=== PATIENT | male | born 1955 | race Caucasian/White ===

== ENCOUNTER 2019-06-07 08:48 | Inpatient (IN) ==
--- NOTE | 2019-06-07 09:37 | Diag Imaging Result Doc PS360 ---
CHEST-PORTABLE - 06/07/2019 INDICATION: weakness COMPARISON: 10/14/2015 FINDINGS: There may be free air under the left hemidiaphragm. Further imaging recommended. No infiltrates in the lungs. IMPRESSION: Possible peritoneal free air. Recommend further imaging. An abdomen pelvis CT would be indicated. This report was discussed with Yuniel on 06/07/2019 at 9:34 AM and was readback. Electronically signed by Arturo Ennis 06/07/2019 9:34 AM
--- NOTE | 2019-06-07 09:40 | PROVIDER DOCUMENTATION ---
HPI-General Adult - General Chief Complaint: B/P Problems Stated Complaint: LOW BP Time Seen by Provider: 06/07/19 08:57 Source: EMS notes reviewed, [facility] records, other (leather coater) Allergies/Adverse Reactions: Patient Allergies Allergy/AdvReac Type Severity Reaction Status Date / Time aspirin AdvReac Unknown Verified 06/07/19 09:21 haloperidol [From Haldol] AdvReac Unknown Verified 06/07/19 09:21 haloperidol lactate * AdvReac Unknown Verified 06/07/19 09:21 [From Haldol] lorazepam [From Ativan] AdvReac Unknown Verified 06/07/19 09:21 Home Medications: Home Medication List Medication Instructions Recorded Confirmed Last Taken Type Bisacodyl 10 mg HI DAILY 10/14/15 06/07/19 06/07/19 History Esomeprazole [Nexium] 40 mg PO DAILY 10/14/15 06/07/19 06/07/19 History Lactulose [Constulose] 2 tbs PO BID 10/14/15 06/07/19 06/07/19 History Levothyroxine Sodium [Levothroid] 25 mcg PO DAILY 10/14/15 06/07/19 06/07/19 History Megestrol Acetate 40 mg PO BID 10/14/15 06/07/19 06/07/19 History Ziprasidone [Geodon] 60 mg PO QHS 10/14/15 06/09/18 06/09/18 History Oxcarbazepine [Trileptal] 300 mg PO TID 06/09/18 06/07/19 06/07/19 History Acetaminophen [Arthritis Pain 1 tab PO BID 06/07/19 06/07/19 06/07/19 History Relief] Ammonium Lactate 1 applicatn TOP BID 06/07/19 06/07/19 06/07/19 History Brinzolamide/Brimonidine Tart 1 drp OPH BID 06/07/19 06/07/19 06/07/19 History [Simbrinza 1%-0.2% Eye Drops] Cilostazol 1 tab PO BID 06/07/19 06/07/19 06/07/19 History Clonidine [Catapres] 0.5 tab PO BID 06/07/19 06/07/19 06/06/19 History Divalproex Sodium [Divalproex 2 tab PO BID 06/07/19 06/07/19 06/07/19 History Sodium ER] Furosemide 1 tab PO DIRECTED 06/07/19 06/07/19 06/07/19 History Ipratropium/Albuterol Sulfate 1 dose INH Q4H PRN 06/07/19 06/07/19 Unknown History [Iprat-Albut 0.5-3(2.5) mg/3 ml] Iron/FA/Vitamin B Comp W-C/Min 1 tab PO DAILY 06/07/19 06/07/19 06/07/19 History [Ferrocite Plus Tablet] Loratadine/Pseudoephedrine 1 tab PO DAILY 06/07/19 06/07/19 06/07/19 History [Allergy Relief D-24Hr Tablet] Magnesium Hydroxide [Milk of 30 ml PO DIRECTED 06/07/19 06/07/19 06/06/19 History Magnesia] Multivitamin [Multivitamins] 1 tab PO DAILY 06/07/19 06/07/19 06/07/19 History Nystatin Cream [Mycostatin Cream] 1 applicatn TOP TID 06/07/19 06/07/19 06/07/19 History Olanzapine [Zyprexa] 1 tab PO DAILY@1900 06/07/19 06/07/19 06/06/19 History Polyethylene Glycol 3350 [Miralax] 34 gm PO BID 06/07/19 06/07/19 06/07/19 History Potassium Chloride E.r. [Klor-Con] 1 tab PO DIRECTED 06/07/19 06/07/19 06/07/19 History Sennosides [Senna Lax] 1 tab PO DAILY 06/07/19 06/07/19 Unknown History Sucralfate 1 tab PO 4XDAY 06/07/19 06/07/19 06/07/19 History - History of Present Illness -Gen Adult Nature of Presenting Problems: Patient with a history of significant developmental delay, non-verbal, sent from his intermediate care institution for low blood pressure, change in activity, increased agitation, weight loss. Patient is unable to give any information. All information is from the LINE SERVICE SUPERVISOR at the facility and the leather coater with him. They report he had a bp of 80's/60's this morning, but usually he is hypertensive. Review of Systems - Adult - REVIEW OF SYSTEMS - ADULT ROS:: unobtainable per condition (except from staff) Constitutional: reports: weight loss Eyes: reports: no symptoms reported Ears, Nose, Mouth & Throat: reports: no symptoms reported Cardiovascular: reports: no symptoms reported Respiratory: reports: no symptoms reported Gastrointestinal: reports: poor appetite, other Genitourinary: reports: no symptoms reported Musculoskeletal: reports: muscle weakness Integumentary: reports: no symptoms reported Neurological: reports: see HPI, other (decrease ability to stand) Psychiatric: reports: other (increased agitation) Endocrine: reports: no symptoms reported Hematologic/Lymphatic: reports: no symptoms reported Allergic/Immunologic: reports: no symptoms reported Past History - Adult - PAST MEDICAL HISTORY-ADULT Review of Records: reports: Old Records Reviewed Major Childhood Illnesses: reports: denies history Cardiovascular: reports: denies history Respiratory: reports: denies history Gastrointestinal: reports: GERD Obstetrical/Gynecological: reports: denies history Genitourinary: reports: denies history Musculoskeletal: reports: denies history Neurological: reports: denies history Endocrine/Immune: reports: denies history Other Conditions: reports: denies history - PRIOR SURGERIES/PROCEDURES Surgical/Procedure History: reports: reviewed, not pertinent - FAMILY HISTORY Family History: reviewed, not pertinent Physical Exam-General - PHYSICAL EXAM-ADULT Initial Vital Signs Reviewed: Yes - CONSTITUTIONAL General Appearance: anxious, other (agitated) - EYES Eyes: sunken eyes - HEAD, EARS, NOSE, MOUTH & THROAT HENMT: normocephalic/atraumatic, other (dry mm). negative: moist mucous membranes - NECK Neck: non-tender - RESPIRATORY Respiratory: chest non-tender, normal breath sounds - CARDIOVASCULAR Cardiovascular: normal peripheral pulses, no JVD, tachycardia - GASTROINTESTINAL (ABDOMEN) Abdominal Exam: soft, no organomegaly. negative: guarding, rigid, tenderness - MUSCULOSKELETAL Extremity: no pedal edema, other (contracted,) - SKIN Integumentary: other (tenting) - NEUROLOGIC Neurologic: sensory deficit. negative: focal weakness - PSYCHIATRIC Psych/Mental Status: other (non-verbal, agitated, not following commands) Progress - PLAN OF CARE/RESULTS Progress/Plan/Lab Results: Vital Signs - 8 hr 06/07/19 08:55 Temperature 97.3 F L Pulse Rate 102 H Respiratory Rate 16 Blood Pressure 129/80 O2 Sat by Pulse Oximetry 97 Orders Category Date Time Status CHEST-PORTABLE [RAD] Stat Exams 06/07/19 09:[address] ABDOMEN/PELVIS W/O CONTRAST [CT] Stat Exams 06/07/19 09:37 Ordered CBC WITH ELECTRONIC DIFF [HEME] Stat Lab 06/07/19 09:16 Uncollected CK PROFILE [SP CHEM] Stat Lab 06/07/19 09:16 Uncollected COMPREHENSIVE METABOLIC PANEL [CHEM] Stat Lab 06/07/19 09:16 Uncollected INFLUENZA SCREEN A/B Stat Lab 06/07/19 09:16 Uncollected LIPASE [CHEM] Stat Lab 06/07/19 09:16 Uncollected MAGNESIUM [CHEM] Stat Lab 06/07/19 09:16 Uncollected TROPONIN T Stat Lab 06/07/19 09:16 Uncollected URINALYSIS W/POSS RFLX CULT [URINALYSIS] Stat Lab 06/07/19 09:[address] noted. Plan for admission. Result Diagrams: 06/07/19 09:34 06/07/19 09:34 - EKG 1 EKG Read and Signed by:: Sal Saucedo (st 109, no ectopy) - CT/MRI 1 CT Study: Abdomen, Pelvis Impression: See EMR Report Departure - Departure Date of Disposition Decision: 06/07/19 Time of Disposition Decision: 11:11 DIAGNOSIS: Hypernatremia, Dehydration Constipation Qualifiers: Constipation type: unspecified constipation type Qualified Code(s): K59.00 - Constipation, unspecified Disposition: ADMITTED INPATIENT 09 Certified Medical Emergency: Emergent Condition: Serious Referrals and Follow-Ups: Hanna Fontana [Primary Care Provider] - - Critical Care Note This patient required my direct & personal management of CC.: Yes Total Time (mins): 36 Critical Care Statement: This patient required my direct personal management to treat or rule out processes, the absence of which, could potentiallly result in sudden, clinically significant life or limb threatening deterioration. Attestation - Physician/ HUDSON Attestation Patient care was provided by Advanced Practice Provider:: No The physician spent face to face time with patient:: Yes Advanced Practice Provider documentation review:: Supervising physician onsite and consulted in the evaluation and care of this patient. The physician did have a face to face encounter with the patient.
[2019-06-07 09:59] LABS: BASO# 0.05 X1000 (0.0-0.2); BASO% 0.4 % (0.0-0.8); EOS# 0.14 X1000 (0.0-0.7); EOS% 1.2 % (0.0-10.0); HEMATOCRIT 46.1 % (42.0-52.0); HEMOGLOBIN 14.9 g/dL (14.0-18.0); IMM GRAN# 0.02 X1000 (0.0-0.04); IMM GRAN% 0.2 % (0.0-0.5); LYMPH% 19.2 % (20.5-51.1); MCH 35.5 PG (27-31); MCHC 32.3 g/dL (33-37); MCV 109.8 FL (81-99); MONO# 0.67 X1000 (0.11-0.59); MONO% 5.9 % (1.7-9.3); MPV 12.4 FL (7.4-10.4); NEUT# 8.35 X1000 (1.4-6.5); NEUT% 73.1 % (42.2-75.2); PLT 171 X1000 (130-400); RDW 13.6 % (11.5-14.5); WBC 11.43 X1000 (4.8-10.8)
--- NOTE | 2019-06-07 10:23 | Diag Imaging Result Doc PS360 ---
EXAM: CT ABDOMEN/PELVIS W/O CONTRAST INDICATION: abdominal pain TECHNIQUE: This exam was performed using automated exposure control, adjustment of mA or kV according to patient size, and/or use of iterative reconstruction technique. COMPARISON: 05/03/2019 FINDINGS: Airspace consolidations at the lung bases, more prominent on the right are again noted. There has been some improvement on the left as compared to the previous study. There is nodularity at both lung bases that is probably a part of the consolidation. There is no pleural fluid collection or pneumothorax. There has been a prior cholecystectomy. The liver, spleen, pancreas, adrenal glands, kidneys, and urinary bladder are grossly unremarkable as imaged with unenhanced CT. There is a large amount of stool seen throughout the colon suggesting severe constipation. Severe constipation was also seen on the previous study. There is no definite obstructive bowel pattern. There is a moderate-sized hiatal hernia that is essentially stable. The remainder of the GI tract is grossly unremarkable as imaged. No free abdominal gas or free fluid is appreciated. There is no evidence of acute osseous abnormality. IMPRESSION: 1.Severe constipation. 2.Bibasilar vaguely nodular airspace infiltrates that is worst on the right and have improved somewhat on the left since the previous study. Electronically signed by Abner Espinoza 06/07/2019 10:21 AM
[2019-06-07 10:50] LABS: AGAP 10; ALBUMIN 3.7 g/dL (3.5-5.0); ALKALINE PHOSPHATASE 122 U/L (32-122); BUN 44 mg/dL (8-22); CALCIUM 8.7 mg/dL (8.8-10.2); CHLORIDE 125 mmol/L (98-107); CK PROFILE 102 U/L (24-204); COSMO 334; CREATININE 1.2 mg/dL (0.7-1.2); ESTIMATED GFR > 60; GLUCOSE 139 mg/dL (70-104); GOT 228 U/L (10-34); GPT 242 U/L (10-44); LIPASE 33 U/L (13-60); MAGNESIUM 2.8 mg/dL (1.5-2.7); POTASSIUM 3.8 mmol/L (3.5-5.1); TCO2 27 mmol/L (25-35); TOTAL BILIRUBIN 0.34 mg/dL (0.20-1.00); TOTAL PROTEIN 7.3 g/dL (6.3-8.3)
[2019-06-07 10:58] LABS: SODIUM 162 mmol/L (136-145)
[2019-06-07] MEDS ORDERED: NS 1,000 ML IV ONE (11:04)
[2019-06-07] MEDS ORDERED: D5W 1,000 ML IV ONE ×3 (11:54→15:13)
[2019-06-07] MEDS ORDERED: DULCOLAX PR ONE (11:57)
--- NOTE | 2019-06-07 12:12 | EKG Report ---
Test Performed on : 06/07/2019 09:10:53 AM Test Reason : LOW BP Blood Pressure : / mmHG Vent. Rate : 101 BPM Atrial Rate : 101 BPM P-R Int : 128 ms QRS Dur : 070 ms QT Int : 402 ms P-R-T Axes : 075 076 -09 degrees QTc Int : [address] & T wave abnormality, consider inferior ischemia Abnormal ECG No previous ECGs available Unconfirmed Result
[2019-06-07] MEDS ORDERED: ZOFRAN IV PRN (12:23)
[2019-06-07] MEDS ORDERED: TYLENOL PR PRN (12:23)
[2019-06-07 13:10] LABS: BILIRUBIN URINE NEGATIVE (NEGATIVE); BLOOD URINE MODERATE (NEGATIVE); COLOR YELLOW; GLUCOSE URINE NEGATIVE (NEGATIVE); KETONE URINE NEGATIVE (NEGATIVE); LEUKOCYTES URINE NEGATIVE (NEGATIVE); NITRITE URINE NEGATIVE (NEGATIVE); PH URINE 7.5; PROTEIN URINE NEGATIVE (NEGATIVE); TURBIDITY URINE HAZY (CLEAR); URINE SOURCE CATH; UROBILINOGEN URINE NORMAL (NORMAL)
[2019-06-07 13:17] LABS: UR EPITHELIAL CELLS <10 /HPF (<10); URINE BACTERIA NEGATIVE /HPF; URINE RBC TNTC /HPF (<10); URINE WBC <10 /HPF (<10)
[2019-06-07 14:54] LABS: HEMOGLOBIN A1C 4.8 % (4.8-6.0)
[2019-06-07] MEDS: D5W 1,000 ML IV SCH (19:27)
--- NOTE | 2019-06-07 19:48 | HISTORY AND PHYSICAL ---
PRIMARY CARE PROVIDER: NIRANJAN Ken. CHIEF COMPLAINT: Per [facility] providers, low blood pressure. HISTORY OF PRESENT ILLNESS: Mr. Will is a 63-year-old, gentleman, who has significant developmental delay. He is nonverbal. He was sent in from the [facility] secondary to low blood pressure, decrease in oral intake. He is able to get up to a chair or a wheelchair, but he does not walk. He does appear to have contractures. He is able to swallow some medications and sometimes they crush them. Per caregivers at bedside, he has 2 good bowel movements per day, and they have not noticed a decrease in his urine output. He does wear briefs at all times. They did bring him to the ED to be evaluated. He was found to be hypernatremic at 165, with transaminitis. He will be admitted to the step-down unit, where we will monitor serial sodium levels. He was given a normal saline bolus in the ED. We will start him on D5W and adjust the rate according to his sodium levels if needed, and continue him on his home medications as well as his bowel regimen. His abdomen and pelvis CT does show severe constipation, which is normal per his caregivers. PAST MEDICAL HISTORY: 1. Severe intellectual impairment. 2. Nonverbal, lives at the [facility] . 3. GERD. 4. Contractures. 5. Chronic constipation. 6. Hypertension. 7. Hypothyroidism. PAST SURGICAL HISTORY: Unknown. FAMILY HISTORY: Unknown. SOCIAL HISTORY: He lives at the [facility]. FAMILY HISTORY: I believe he does have family. They are not currently at the bedside. HOME MEDICATIONS: Currently being compiled and updated. PHYSICAL EXAMINATION: VITAL SIGNS: Temperature is 97.3 degrees, heart rate 105, respirations 14, blood pressure 117/98, O2 is 99% on room air. GENERAL: Mr. Will is a 63-year-old, gentleman, who is lying on his right side on the stretcher in no acute distress. They are attempting to put in a Chandler catheter at this time. HEENT: Atraumatic, normocephalic. PERRL. Mucous membranes are extremely dry. NECK: Supple. Trachea midline. CARDIOVASCULAR: S1, S2 appreciated. No murmurs, gallops, rubs noted. RESPIRATORY: Lung sounds clear bilaterally. GASTROINTESTINAL: Appears to be soft, nontender, nondistended. Positive bowel sounds in 4 quadrants. EXTREMITIES: Lower extremities appear to be contractured as well as upper extremities. There is no lower extremity edema. No signs of clubbing or cyanosis. NEUROLOGIC: He does have significant developmental delays. However, he is awake and looking around. He does not talk or answer questions. He is nonverbal, does not follow any commands, and he is not agitated at this time. DIAGNOSTIC DATA: Abdomen and pelvis CT: Severe constipation, bibasilar vaguely nodular airspace infiltrates that are worse on the right and have improved somewhat on the left since previous study. EKG: Sinus tachycardia with ST and T-wave abnormality at 101 beats per minute. LABORATORY DATA: White count 11, hemoglobin and hematocrit 14 and 46, platelet count is 171,000. Sodium 165, potassium 3.8, BUN 44, creatinine 1.2, blood glucose is 139. Magnesium 2.8, AST 228, ALT 242. Troponin 0.088. Lipase is 33. Urinalysis: Rdo-qedgbslc-wb-count WBCs, moderate amount of blood, negative for bacteria, negative for nitrites. ASSESSMENT AND PLAN: 1. Hypernatremia secondary to dehydration. The patient has had a decrease in his p.o. intake. He was given a 1 L bolus of normal saline in the ED. We will continue with D5W. We will check serum sodium levels q.4 hours, as to not bring his sodium down to aggressively. Continue to check urine studies. 2. Decreased appetite and poor oral intake. We will place him on a mechanical soft diet and resume his home medications. 3. Significant developmental delay, nonverbal, from the [facility], with contractures. Patient does get out of bed to a wheelchair. He does not really walk. He does have some contractures. We will need to turn q.2. 4. Hypertension. He was hypotensive. We will hold any blood pressure medications at this time. 5. Hypotension. Resolved. 6. Gastroesophageal reflux disease. We will continue proton pump inhibitor. 7. Some behavioral disturbances secondary to his significant developmental delay. We will continue with his home medications. 8. Hypothyroidism. Continue with his Synthroid. 9. Transaminitis. We will recheck his liver function in the morning. If not improved, we can follow up with an abdominal ultrasound. 10. Constipation. We will continue with his home bowel regimen. Further recommendations to follow physician evaluation, laboratory and diagnostic data. Dictated by NIRANJAN Orozco for Carol Palacios MD cc: Carol Palacios MD I performed a face to face encounter on the patient. I reviewed all labs and imaging on the patient. I agree with the H&P as dictated. is a 63 year old male with multiple medical problems who presented to the ER with severe dehydration and hypernatremia. On exam, the patient is nonverbal. He has poor skin turgor. No peripheral edema was noted. The patient has a sodium of 165. Will start the patient on D5W and monitor the sodium closely. MTDD
[2019-06-07] MEDS: MIRALAX PO SCH (21:36)
[2019-06-07] MEDS: MEGACE PO SCH (21:37)
[2019-06-07] MEDS: DULCOLAX PR SCH (21:37)
[2019-06-07] MEDS: DEPAKOTE ER PO SCH (21:42)
[2019-06-07] MEDS: PLETAL PO SCH (21:43)
[2019-06-07] MEDS ORDERED: D5W 1,000 ML IV SCH (22:00)
[2019-06-08] MEDS ORDERED: D5W 1,000 ML IV SCH (01:30)
[2019-06-08] MEDS: D5W 1,000 ML IV SCH ×4 (03:42→19:35)
[2019-06-08] MEDS ORDERED: MORPHINE IV ONE (04:12)
[2019-06-08 06:19] LABS: BASO# 0.02 X1000 (0.0-0.2); BASO% 0.3 % (0.0-0.8); EOS# 0.14 X1000 (0.0-0.7); EOS% 2.2 % (0.0-10.0); HEMATOCRIT 40.7 % (42.0-52.0); HEMOGLOBIN 12.9 g/dL (14.0-18.0); LYMPH# 1.61 X1000 (1.2-3.4); MCHC 31.7 g/dL (33-37); MCV 110.3 FL (81-99); MONO# 0.33 X1000 (0.11-0.59); MONO% 5.1 % (1.7-9.3); MPV 12.4 FL (7.4-10.4); NEUT# 4.34 X1000 (1.4-6.5); NEUT% 67.4 % (42.2-75.2); PLT 123 X1000 (130-400); RBC 3.69 XMIL (4.7-6.1); WBC 6.44 X1000 (4.8-10.8)
--- NOTE | 2019-06-08 07:44 | Diag Imaging Result Doc PS360 ---
EXAM: KUB ABDOMEN - 06/08/2019 HISTORY: KUB TECHNIQUE: Portable AP spine abdomen COMPARISON: 01/15/2015 FINDINGS: There is mild distention of colon by gas and fecal debris, suggesting constipation. Bowel gas pattern otherwise appears nonspecific. There is no discrete substantial gaseous small bowel distention identified. There are surgical clips at the right upper quadrant. IMPRESSION: Evidence of constipation. Nonspecific bowel gas pattern otherwise. Electronically signed by Steven Magaña 06/08/2019 7:41 AM
[2019-06-08 08:16] LABS: FREE T4 0.58 ng/dL (0.93-1.70)
[2019-06-08 08:20] LABS: TCO2 19 mmol/L (25-35); TOTAL PROTEIN 6.5 g/dL (6.3-8.3)
[2019-06-08] MEDS: PRILOSEC PO SCH (08:33)
[2019-06-08] MEDS: DEPAKOTE ER PO SCH ×2 (08:33→22:02)
[2019-06-08] MEDS: MEGACE PO SCH ×2 (08:33→22:02)
[2019-06-08] MEDS: MIRALAX PO SCH ×2 (08:33→22:01)
[2019-06-08 08:34] LABS: AGAP 18; ALB/GLOB RATIO 0.9; ALBUMIN 3.1 g/dL (3.5-5.0); ALKALINE PHOSPHATASE 112 U/L (32-122); BUN 29 mg/dL (8-22); CHLORIDE 118 mmol/L (98-107); COSMO 312; CREATININE 0.9 mg/dL (0.7-1.2); ESTIMATED GFR > 60; GLUCOSE 85 mg/dL (70-104); GOT 124 U/L (10-34); GPT 175 U/L (10-44); MAGNESIUM 2.2 mg/dL (1.5-2.7); POTASSIUM 3.2 mmol/L (3.5-5.1); SODIUM 155 mmol/L (136-145); TOTAL BILIRUBIN 0.35 mg/dL (0.20-1.00)
[2019-06-08] MEDS: SENOKOT PO SCH (08:34)
[2019-06-08] MEDS: SYNTHROID PO SCH (08:34)
[2019-06-08] MEDS: THERA M PLUS PO SCH (08:34)
[2019-06-08] MEDS: DULCOLAX PR SCH ×3 (08:34→21:51)
[2019-06-08] MEDS: PLETAL PO SCH ×2 (08:35→22:02)
[2019-06-08] MEDS ORDERED: [UNRECOGNIZED DRUG - OTHER] PO SCH (09:00)
[2019-06-08] MEDS ORDERED: FERREX PO SCH (09:00)
[2019-06-08 11:22] LABS: HEPATITIS PROFILE ACUTE SEE COMMENTS
[2019-06-08] MEDS ORDERED: POTASSIUM CHLORIDE 60 MEQ in NS 500 ML IV ONE (15:02)
--- NOTE | 2019-06-08 15:07 | PROVIDER PROGRESS NOTE ---
Progress Note Chief complaint: nonverbal. HPI: Mr. Will is a 63-year-old white male who has a past medical history of intellectual impairment residing in a retirement, hypertension, GERD, and contractures. His caretakers brought him into the Emergency Department for complaints of low blood pressure, increased agitation, and change in activity. Work up labs showed a sodium level of 165. He was given a normal saline bolus in the ED and is now receiving D5W. Abdomen and pelvis CT without contrast shows severe constipation which is normal per caregivers. Past medical history: severe intellectual impairment, nonverbal, GERD, contractures, chronic constipation, hypertension, hypothyroidism. Past surgical history: unknown Social history: Lives at retirement, no tobacco, alcohol, or illicit drug use Family history: unknown Home medications: Tylenol, ammonium lactate, bisacodyl, Catapres, divalproex sodium, Nexium, fursemide, vitamin B complex with iron, lactulose, levothyroxine sodium, milk of magnesia, Megace, multivitamin, nystatin cream, Zyprexa, Trileptal, MiraLAX, potassium chloride, Senna lax, sucralfate, Geodon. Review of systems: unable to obtain Labs: WBC 6.44, hemoglobin 12.9, hematocrit 40.7, platelet count 123, sodium 155, potassium 3.2, chloride 118, carbon dioxide 19, BUN 29, creatinine 0.9, calcium 8.0, magnesium 2.2, albumin 3.1, free T4 0.58. Intake zero, output 1050 with two bowel movements. Imaging: abdominal pelvis CT without contrast impression severe constipation, bibasilar vaguely nodular airspace infiltrates that is worse on the right and have improved somewhat on the left since previous study. Physical exam: temperature 97.8, pulse 89, respiration 16, blood pressure 150/88, O2 sat 100% on room air. General: chronic ill and malnourished white male lying in bed in no acute distress. HEENT: Normocephalic, atraumatic. Trachea midline. Mucous membranes dry. Skin: thin, warm and dry. Neck: supple, no JVD. Cardiovascular: S1, S2. No gallop or murmur. Respiratory: lungs clear bilaterally with equal excursion. Abdomen: soft, nontender, nondistended. Bowel sounds present. : non-inspected. Extremities: No edema, clubbing, or cyanosis. Neurological: Unable to assess. Assessment and plan: Hypernatremia. Improving. Continue IV fluids and free water. Nutrition. Pureed diet with supplements ordered, staff at bedside to assist with meals. Medications reviewed.
[2019-06-08] MEDS: LOVENOX SUBQ SCH (22:03)
--- NOTE | 2019-06-09 03:47 | PROGRESS NOTE ---
DATE: 06/08/2019 SUBJECTIVE: The patient is resting. No acute events noted overnight. OBJECTIVE: Vital Signs: Temperature 98.1 degrees, blood pressure 149/81, heart rate 99, respirations 18, O2 saturation 97% on room air. General: This is a chronically ill-appearing, elderly male, currently lying in bed in no acute distress. Heart: S1, S2 normal. Regular rate and rhythm. Lungs: Clear to auscultation bilaterally. No wheezing. No rales. Abdomen: Positive bowel sounds. Soft, nontender, nondistended. Extremities: No edema noted. Neurologic: The patient is awake. He has severe developmental delay. LABS: White blood cell count 6.4, hemoglobin 12, hematocrit 40, platelets 123,000. Sodium 155, potassium 3.2, chloride 118, CO2 19, BUN 29, creatinine 0.9, glucose 85, AST 124, ALT 175, alkaline phosphatase 112, albumin 3.1. ASSESSMENT AND PLAN: 1. Severe hypernatremia. Slowly improving. Continue with D5W. 2. Transaminitis. Slightly improved. Will continue to monitor closely. The hepatitis profile is negative. 3. Severe developmental delay. Aware. 4. Hypokalemia. We will replace the patient's potassium. 5. Chronic constipation. Continue with the current bowel regimen. 6. Deep vein thrombosis prophylaxis. Will start the patient on Lovenox. cc: Carol Palacios MD MTDD
[2019-06-09] MEDS: D5W 1,000 ML IV SCH ×3 (03:50→20:06)
[2019-06-09 06:14] LABS: HEMATOCRIT 43.5 % (42.0-52.0); HEMOGLOBIN 14.8 g/dL (14.0-18.0); MCH 36.7 PG (27-31); MCV 107.9 FL (81-99); MPV 12.2 FL (7.4-10.4); RBC 4.03 XMIL (4.7-6.1); RDW 12.8 % (11.5-14.5); WBC 4.92 X1000 (4.8-10.8)
[2019-06-09] MEDS: SYNTHROID PO SCH (06:14)
[2019-06-09] MEDS: PRILOSEC PO SCH (06:14)
[2019-06-09 07:30] LABS: ALBUMIN 2.9 g/dL (3.5-5.0); BUN 17 mg/dL (8-22); CALCIUM 8.8 mg/dL (8.8-10.2); ESTIMATED GFR > 60; GPT 151 U/L (10-44)
[2019-06-09 09:09] LABS: AGAP 20; ALB/GLOB RATIO 0.6; ALKALINE PHOSPHATASE 124 U/L (32-122); CHLORIDE 125 mmol/L (98-107); COSMO 320; CREATININE 0.9 mg/dL (0.7-1.2); GLUCOSE 96 mg/dL (70-104); GOT 118 U/L (10-34); POTASSIUM 4.4 mmol/L (3.5-5.1); TCO2 16 mmol/L (25-35); TOTAL BILIRUBIN 0.38 mg/dL (0.20-1.00); TOTAL PROTEIN 7.4 g/dL (6.3-8.3)
[2019-06-09 09:13] LABS: SODIUM 161 mmol/L (136-145)
[2019-06-09] MEDS: MEGACE PO SCH ×2 (09:45→20:28)
[2019-06-09] MEDS: MIRALAX PO SCH ×2 (09:45→20:29)
[2019-06-09] MEDS: PLETAL PO SCH ×2 (09:45→20:29)
[2019-06-09] MEDS: THERA M PLUS PO SCH (09:45)
[2019-06-09] MEDS: DULCOLAX PR SCH (09:45)
[2019-06-09] MEDS: SENOKOT PO SCH (09:45)
[2019-06-09] MEDS: DEPAKOTE ER PO SCH ×2 (09:45→20:28)
[2019-06-09] MEDS: HEMOCYTE PLUS CAPSULE PO SCH (09:45)
--- NOTE | 2019-06-09 14:53 | PROGRESS NOTE ---
DATE: 06/09/2019 SUBJECTIVE: The patient is eating breakfast. His sitter is feeding him. OBJECTIVE: Vital Signs: Temperature 97.2 degrees, blood pressure 118/66, heart rate 92, respirations 18, O2 saturation 97% on room air. General: This is a chronically ill-appearing elderly male lying in bed in no acute distress. Heart: S1, S2 normal. Tachycardic. Lungs: Clear to auscultation bilaterally. Abdomen: Positive bowel sounds. Soft, nontender, nondistended. Extremities: The patient is contracted, no edema noted. Neuro: The patient is awake. LABS: White blood cell count 4.9, hemoglobin 14, hematocrit 43, platelets 143,000. Sodium 161, potassium 4.4, chloride 125, CO2 16, BUN 17, creatinine 0.9, glucose 96. AST 118, ALT 151, alkaline phosphatase 124. ASSESSMENT AND PLAN: 1. Severe hypernatremia. Improved. 2. Transaminitis. Slowly improving. Continue to hydrate the patient. 3. Severe developmental delay. Aware. 4. Chronic constipation. Resolved. Continue with scheduled laxative regimen. 5. Hypertension. Continue on the current antihypertensive regimen. 6. Hypothyroidism. Continue on Synthroid. 7. Gastroesophageal reflux disease. Continue on Prilosec. 8. Deep vein thrombosis prophylaxis. Continue on Lovenox. cc: Carol Palacios MD MTDD
[2019-06-09] MEDS ORDERED: MORPHINE IV ONE (17:14)
[2019-06-09] MEDS ORDERED: MORPHINE ONE (17:28)
[2019-06-09] MEDS: LOVENOX SUBQ SCH (20:29)
--- NOTE | 2019-06-09 21:43 | NEPHROLOGY PROGRESS NOTE ---
DATE: 06/09/2019 SUBJECTIVE: He has eyes open looking at me today but still nonverbal. OBJECTIVE: Vital Signs: Blood pressure 119/72, heart rate 105, respirations 11. General: Chronically ill, contracted, no distress. Skin: Warm and dry. Heart: Regular. Lungs: Equal. No crackles. Abdomen: Soft. Extremities: No edema. IMPRESSION: Hypernatremia. It has been progressively improving. Repeat sodium this afternoon 145. We will continue his D5 water as ordered. His creatinine and BUN have returned to baseline. He does have a modest metabolic acidosis. Continue current care. cc: Sam Wray MD
[2019-06-10] MEDS: D5W 1,000 ML IV SCH ×3 (03:56→15:25)
[2019-06-10] MEDS: DEPAKOTE ER PO SCH ×2 (09:30→20:03)
[2019-06-10 10:00] LABS: AGAP 11; ALB/GLOB RATIO 0.8; ALBUMIN 2.7 g/dL (3.5-5.0); ALKALINE PHOSPHATASE 95 U/L (32-122); BUN 17 mg/dL (8-22); CALCIUM 8.2 mg/dL (8.8-10.2); CHLORIDE 110 mmol/L (98-107); COSMO 288; CREATININE 0.8 mg/dL (0.7-1.2); ESTIMATED GFR > 60; GLUCOSE 83 mg/dL (70-104); GOT 61 U/L (10-34); GPT 102 U/L (10-44); SODIUM 144 mmol/L (136-145); TCO2 23 mmol/L (25-35); TOTAL BILIRUBIN 0.29 mg/dL (0.20-1.00); TOTAL PROTEIN 5.9 g/dL (6.3-8.3)
[2019-06-10] MEDS: MIRALAX PO SCH ×2 (10:59→20:03)
[2019-06-10] MEDS: SENOKOT PO SCH (11:00)
[2019-06-10] MEDS: PRILOSEC PO SCH (11:00)
[2019-06-10] MEDS: DULCOLAX PR SCH (11:00)
[2019-06-10] MEDS: MEGACE PO SCH ×2 (11:00→20:03)
[2019-06-10] MEDS: THERA M PLUS PO SCH (11:01)
[2019-06-10] MEDS: SYNTHROID PO SCH (11:01)
[2019-06-10] MEDS: HEMOCYTE PLUS CAPSULE PO SCH (11:01)
[2019-06-10] MEDS: PLETAL PO SCH ×2 (11:03→20:04)
--- NOTE | 2019-06-10 18:49 | PROGRESS NOTE ---
DATE: 06/10/2019 SUBJECTIVE: The patient is resting comfortably. No acute events noted overnight. OBJECTIVE: Vital signs: Temperature 98.1 degrees, blood pressure 136/94, heart rate 93, respirations 19, O2 saturation 96% on room air. General: This is a chronically ill-appearing elderly male lying in bed, in no acute distress. Heart: S1, S2 normal. Tachycardic.Lungs: Equal air entry bilaterally. No wheezing. No rales. Abdomen: Positive bowel sounds. Soft, nontender, nondistended. Extremities: No edema, no cyanosis. Neurologic: The patient has severe developmental delay. LABORATORY DATA: Sodium 144, BUN 17, creatinine 0.8, glucose 83, chloride 110, CO2 is 23. ASSESSMENT AND PLAN: 1. Hypernatremia. Resolved. 2. Transaminitis. Slowly improving. 3. Severe developmental delay. Aware. 4. Dementia with behavioral disturbance. Continue on Depakote. 5. Chronic constipation. Continue with scheduled laxative regimen. 6. Hypothyroidism. Continue on Synthroid. 7. Hypertension. Controlled. 8. Gastroesophageal reflux disease. Continue on Prilosec. 9. Deep vein thrombosis prophylaxis. Continue on Lovenox. 10. Disposition. Will consult physical therapy. cc: Carol Palacios MD MTDD
[2019-06-10] MEDS: LOVENOX SUBQ SCH (20:03)
[2019-06-10] MEDS: ZYPREXA PO SCH (20:04)
[2019-06-11] MEDS: D5W 1,000 ML IV SCH ×4 (03:50→21:46)
[2019-06-11] MEDS ORDERED: MORPHINE IV ONE (05:02)
[2019-06-11 07:42] LABS: AGAP 11; ALB/GLOB RATIO 0.8; ALBUMIN 2.7 g/dL (3.5-5.0); ALKALINE PHOSPHATASE 99 U/L (32-122); BUN 15 mg/dL (8-22); CALCIUM 8.3 mg/dL (8.8-10.2); CHLORIDE 112 mmol/L (98-107); COSMO 289; CREATININE 0.8 mg/dL (0.7-1.2); ESTIMATED GFR > 60; GLUCOSE 94 mg/dL (70-104); GOT 65 U/L (10-34); GPT 95 U/L (10-44); SODIUM 145 mmol/L (136-145); TCO2 22 mmol/L (25-35); TOTAL BILIRUBIN 0.33 mg/dL (0.20-1.00); TOTAL PROTEIN 6.3 g/dL (6.3-8.3)
--- NOTE | 2019-06-11 09:38 | Diag Imaging Result Doc PS360 ---
CHEST-1 VIEW - 06/11/2019 INDICATION: dyspnea COMPARISON: 06/07/2019 FINDINGS: There has been significant increase in size of hiatal hernia. Heart size and pulmonary vascularity is normal. No infiltrates or edema. No pneumothorax or pleural effusion. IMPRESSION: Increasing hiatal hernia. Electronically signed by Arturo Ennis 06/11/2019 9:36 AM
[2019-06-11] MEDS: DULCOLAX PR SCH (09:39)
[2019-06-11] MEDS: HEMOCYTE PLUS CAPSULE PO SCH (10:04)
[2019-06-11] MEDS: THERA M PLUS PO SCH (10:05)
[2019-06-11] MEDS: SENOKOT PO SCH (10:05)
[2019-06-11] MEDS: MEGACE PO SCH (10:06)
[2019-06-11] MEDS: DEPAKOTE ER PO SCH ×2 (10:06→21:49)
[2019-06-11] MEDS: PLETAL PO SCH ×2 (10:07→22:00)
[2019-06-11] MEDS: MIRALAX PO SCH ×2 (10:17→21:48)
[2019-06-11] MEDS: SYNTHROID PO SCH (10:25)
[2019-06-11] MEDS: PRILOSEC PO SCH (10:25)
[2019-06-11] MEDS: MEGACE LIQUID PO SCH ×2 (15:05→21:48)
[2019-06-11 19:21] LABS: URINE SOURCE CATH
[2019-06-11 19:36] LABS: BILIRUBIN URINE NEGATIVE (NEGATIVE); BLOOD URINE MODERATE (NEGATIVE); COLOR YELLOW; GLUCOSE URINE NEGATIVE (NEGATIVE); KETONE URINE NEGATIVE (NEGATIVE); LEUKOCYTES URINE LARGE (NEGATIVE); NITRITE URINE NEGATIVE (NEGATIVE); PROTEIN URINE TRACE mg/dL (NEGATIVE); SP GRAVITY URINE 1.008; TURBIDITY URINE HAZY (CLEAR); UROBILINOGEN URINE NORMAL (NORMAL)
[2019-06-11 19:37] LABS: UR EPITHELIAL CELLS <10 /HPF (<10); URINE BACTERIA 4+ /HPF; URINE RBC 20-40 /HPF (<10); URINE WBC TNTC /HPF (<10)
--- NOTE | 2019-06-11 20:06 | PROGRESS NOTE ---
DATE: 06/11/2019 SUBJECTIVE: The patient has not been eating according to the caregivers and he gets very agitated. OBJECTIVE: Vital Signs: Temperature 97.8 degrees, blood pressure 146/71, heart rate 101, respirations 20, O2 saturation 100% on room air. General: This is a chronically ill-appearing elderly male currently lying in bed in no acute distress. Heart: S1, S2 normal. Tachycardic. Lungs: Equal air entry bilaterally. No wheezing, no rales. Abdomen: Positive bowel sounds. Soft, nontender, nondistended. Extremities: No edema, no cyanosis. Neuro: The patient has severe developmental delay and does not talk. LABS: Sodium 145, potassium 4, chloride 112, CO2 22, BUN 15, creatinine 0.8, glucose 94. UA positive for bacteria, leukocytes and WBCs. ASSESSMENT AND PLAN: 1. Hypernatremia secondary to dehydration. Resolved. 2. Urinary tract infection. Will start the patient on Rocephin. The urine culture is currently pending. 3. Transaminitis. Improved. 4. Severe developmental delay. Aware. 5. Dementia with behavioral disturbance. Continue on Depakote. 6. Hypothyroidism. Continue on Synthroid. 7. Hypertension. Controlled. 8. Gastroesophageal reflux disease. Continue on Prilosec. 9. Deep vein thrombosis prophylaxis. Continue on Lovenox. cc: Carol Palacios MD MTDD
[2019-06-11] MEDS: LOVENOX SUBQ SCH (21:48)
[2019-06-11] MEDS: ROCEPHIN 1 GM in NS 50 ML IV SCH (21:49)
[2019-06-11] MEDS: MORPHINE IV PRN (21:56)
[2019-06-11] MEDS: ZYPREXA PO SCH (22:00)
[2019-06-12] MEDS: SYNTHROID PO SCH (06:12)
[2019-06-12] MEDS: PRILOSEC PO SCH (06:12)
[2019-06-12] MEDS: D5W 1,000 ML IV SCH (07:48)
[2019-06-12 08:00] LABS: AGAP 11; ALB/GLOB RATIO 0.8; ALBUMIN 2.7 g/dL (3.5-5.0); ALKALINE PHOSPHATASE 99 U/L (32-122); BUN 12 mg/dL (8-22); CHLORIDE 109 mmol/L (98-107); COSMO 286; CREATININE 0.7 mg/dL (0.7-1.2); ESTIMATED GFR > 60; GLUCOSE 96 mg/dL (70-104); GOT 60 U/L (10-34); GPT 83 U/L (10-44); POTASSIUM 3.9 mmol/L (3.5-5.1); SODIUM 144 mmol/L (136-145); TCO2 24 mmol/L (25-35); TOTAL BILIRUBIN 0.35 mg/dL (0.20-1.00); TOTAL PROTEIN 6.3 g/dL (6.3-8.3)
[2019-06-12] MEDS: HEMOCYTE PLUS CAPSULE PO SCH (10:31)
[2019-06-12] MEDS: DULCOLAX PR SCH (10:31)
[2019-06-12] MEDS: MIRALAX PO SCH ×2 (10:32→23:58)
[2019-06-12] MEDS: THERA M PLUS PO SCH (10:32)
[2019-06-12] MEDS: DEPAKOTE ER PO SCH ×2 (10:32→23:45)
[2019-06-12] MEDS: MEGACE LIQUID PO SCH ×2 (10:32→23:57)
[2019-06-12] MEDS: SENOKOT PO SCH (10:32)
[2019-06-12] MEDS: PLETAL PO SCH ×2 (12:11→23:40)
[2019-06-12] MEDS ORDERED: NS 50 ML ONE (14:55)
[2019-06-12] MEDS: DIFLUCAN PO SCH (17:32)
--- NOTE | 2019-06-12 20:48 | PROGRESS NOTE ---
DATE: 06/12/2019 SUBJECTIVE: The patient is resting. No acute events noted overnight. OBJECTIVE: Vital Signs: Temperature 98.3 degrees, blood pressure 128/77, heart rate 81, respirations 18, O2 saturation 94% on room air. General: This is an elderly male lying in bed in no acute distress. Heart: S1, S2 normal. Regular rate and rhythm. Lungs: Clear to auscultation bilaterally. Abdomen: Positive bowel sounds. Soft, nontender, nondistended. Extremities: No edema, no cyanosis. Neurologic: The patient is awake but does not talk. LABORATORY DATA: Sodium 144, potassium 3.9, chloride 109, CO2 24, BUN 12, creatinine 0.7. ASSESSMENT AND PLAN: 1. Hypernatremia. Resolved. 2. Urinary tract infection. The urine culture is pending. Continue on Rocephin. 3. Severe developmental delay. Aware. 4. Dementia with behavioral disturbance. Continue on Depakote. 5. Hypothyroidism. Continue on Synthroid. 6. Hypertension. Controlled. 7. Transaminitis. Slowly improving. Continue to monitor. 8. Gastroesophageal reflux disease. Continue on Prilosec. 9. Deep vein thrombosis prophylaxis. Continue on Lovenox. DISPOSITION: The patient should be able to be discharged back to the [facility] once the urine culture results are available. cc: Carol Palacios MD MTDD
[2019-06-12] MEDS: MORPHINE IV PRN (22:04)
[2019-06-12] MEDS: ZYPREXA PO SCH (23:40)
[2019-06-12] MEDS: ROCEPHIN 1 GM in NS 50 ML IV SCH (23:58)
[2019-06-12] MEDS: LOVENOX SUBQ SCH (23:58)
[2019-06-13] MEDS: MORPHINE IV PRN (02:13)
[2019-06-13] MEDS: SYNTHROID PO SCH (06:20)
[2019-06-13] MEDS: PRILOSEC PO SCH (06:20)
[2019-06-13 07:52] LABS: HEMATOCRIT 36.8 % (42.0-52.0); HEMOGLOBIN 12.1 g/dL (14.0-18.0); MCH 35.4 PG (27-31); MCHC 32.9 g/dL (33-37); MCV 107.6 FL (81-99); MPV 11.5 FL (7.4-10.4); RBC 3.42 XMIL (4.7-6.1); RDW 12.8 % (11.5-14.5); WBC 6.56 X1000 (4.8-10.8)
[2019-06-13 08:08] LABS: AGAP 11; BUN 14 mg/dL (8-22); CALCIUM 8.6 mg/dL (8.8-10.2); CHLORIDE 108 mmol/L (98-107); COSMO 285; CREATININE 0.7 mg/dL (0.7-1.2); ESTIMATED GFR > 60; GLUCOSE 87 mg/dL (70-104); POTASSIUM 4.1 mmol/L (3.5-5.1); SODIUM 143 mmol/L (136-145); TCO2 24 mmol/L (25-35)
[2019-06-13] MEDS: MIRALAX PO SCH ×2 (09:30→21:57)
[2019-06-13] MEDS: PLETAL PO SCH ×2 (09:34→21:58)
[2019-06-13] MEDS: MEGACE LIQUID PO SCH (09:35)
[2019-06-13] MEDS: DIFLUCAN PO SCH (09:35)
[2019-06-13] MEDS: SENOKOT PO SCH (09:35)
[2019-06-13] MEDS: DULCOLAX PR SCH (09:35)
[2019-06-13] MEDS: HEMOCYTE PLUS CAPSULE PO SCH (09:35)
[2019-06-13] MEDS: DEPAKOTE ER PO SCH ×2 (09:35→21:59)
[2019-06-13] MEDS: THERA M PLUS PO SCH (09:35)
[2019-06-13] MEDS: LOVENOX SUBQ SCH (21:58)
[2019-06-13] MEDS: ROCEPHIN 1 GM in NS 50 ML IV SCH (21:59)
[2019-06-13] MEDS: ZYPREXA PO SCH (21:59)
--- NOTE | 2019-06-13 22:15 | PROGRESS NOTE ---
DATE: 06/13/2019 INTERVAL HISTORY: No acute events overnight. The patient's caregiver is at bedside. She was concerned about a wound on the right forearm which looked like folliculitis with mild bleeding. OBJECTIVE: The patient is nonverbal, occasionally moaning. Vital signs: Temperature 97.9 degrees, pulse 98, respiratory rate 21, blood pressure 102/66, saturating 100% on room air. On physical examination, not in acute distress. He does appear to have flexion contracture of bilateral upper and lower extremities. Oral cavity, could not examine. He appears to have bilaterally equal air entry without any wheeze, rhonchi or crackles. He has severe protein-energy malnutrition. S1, S2 normal. No murmur or gallop. Abdomen is soft, nontender. No lower extremity edema. On the right forearm he does appear to have what looks like slightly inflamed folliculitis which is bleeding a little bit. LABORATORY DATA: His CBC and electrolytes are essentially unremarkable. Urine culture growing Escherichia coli, sensitive to ceftriaxone as well as levofloxacin. DIAGNOSTIC DATA: No new imaging today. ASSESSMENT AND PLAN: 1. Hypotension and hypernatremia on presentation, now resolved. 2. Acute Escherichia coli urinary tract infection. Change intravenous antibiotics to oral levofloxacin, which should also take care of slightly inflamed folliculitis of right forearm. 3. Others: Continue home olanzapine, Depakote, oxcarbazepine for history of developmental delay; levothyroxine for hypothyroidism; home omeprazole for chronic gastroesophageal reflux disease; bowel regimen for his constipation. 4. Disposition: If the patient continues to do well, my plan is to discharge him back to his residential in the next 24 hours. Plan of care discussed with the patient's caregiver at bedside. Their questions have been answered. cc: Adrian Trotter MD
[2019-06-14] MEDS: MORPHINE IV PRN (01:48)
[2019-06-14] MEDS: SYNTHROID PO SCH (06:01)
[2019-06-14] MEDS: PRILOSEC PO SCH (06:01)
[2019-06-14] MEDS ORDERED: TRILEPTAL PO SCH (08:00)
[2019-06-14] MEDS ORDERED: LEVAQUIN PO SCH (09:00)
[2019-06-14] MEDS: SENOKOT PO SCH (11:07)
[2019-06-14] MEDS: THERA M PLUS PO SCH (11:07)
[2019-06-14] MEDS: PLETAL PO SCH (11:07)
[2019-06-14] MEDS: DEPAKOTE ER PO SCH (11:07)
[2019-06-14] MEDS: DULCOLAX PR SCH (11:08)
[2019-06-14] MEDS: MIRALAX PO SCH (11:08)
[2019-06-14 12:13] VITALS: BP 127/81
[2019-06-14] MEDS ORDERED: FLU VACCINE IM ONE (12:45)
[2019-06-14] MEDS ORDERED: PNEUMOVAX 23 IM ONE (12:45)
--- NOTE | 2019-06-15 12:03 | DISCHARGE SUMMARY ---
ADMISSION DATE: 06/07/2019 DISCHARGE DATE: 06/14/2019 DISCHARGE DISPOSITION: Back to senior living. DISCHARGE CONDITION: Hemodynamically stable, no longer hypotensive. He is on antibiotic therapy for a urinary tract infection and his sodium levels are normal. DISCHARGE DIAGNOSES: 1. Hypernatremia. 2. Clinical intravascular volume depletion due to poor oral intake. 3. Escherichia coli urinary tract infection. 4. Reported hypotension, likely in the setting of poor oral intake and use of antihypertensive medications. 5. Transaminitis, likely in the setting of hypotension and intravascular volume depletion. 6. Constipation. OTHER DIAGNOSES: 1. Developmental delay and mental retardation. 2. Bilateral upper and lower extremity contractures. 3. Chronic gastroesophageal reflux disease. 4. Behavioral disturbances related to developmental delay. 5. Chronic constipation. DISCHARGE MEDICATIONS: 1. Ammonium lactate 1 application topical b.i.d. 2. Bisacodyl 10 mg per rectal daily. 3. Cilostazol 100 mg b.i.d. 4. Lactulose 2 tablets p.o. b.i.d. of 10 g. 5. Divalproex sodium extended release 500 mg b.i.d. 6. Albuterol ipratropium nebulization 1 inhalation every 4 hours as needed for shortness of breath. 7. Levothyroxine 25 mcg daily. 8. Megestrol 40 mg b.i.d. 9. MiraLAX 34 g b.i.d. 10. Multivitamin 1 tablet daily. 11. Nystatin 1 application t.i.d. 12. Nexium 40 mg daily. 13. Senna 8.6 mg tablet daily. 14. Brinzolamide/brimonidine tartrate 1 drop ophthalmic b.i.d. 15. Oxcarbazepine 300 mg t.i.d. 16. Olanzapine 5 mg at 7 p.m. 17. Levofloxacin 500 mg daily, 3 tablets. DISCHARGE INSTRUCTIONS: The patient and the senior living were provided with discharge instructions that the patient's medications including oxcarbazepine, olanzapine, divalproex could contribute to decreased responsiveness, drowsiness, and they should consider changing the dose or tapering down as tolerated. They were also advised to keep a close eye on input and output so that the patient can take adequate oral intake. The patient is at risk of developing recurrent dehydration due to poor oral intake and development delay. VITALS: At the time of discharge, temperature 98.2 degrees, pulse 62, respiratory rate 18, blood pressure 127/81, saturating 97% on room air. PHYSICAL EXAMINATION: Not in any acute distress. He appears cachectic. He has bilateral upper and lower extremity contractures. He does not engage in meaningful conversation. He is not able to open his mouth to verbal stimuli. However, it does appear that he has some pool of saliva. Air entry bilaterally equal. No wheeze, rhonchi, or crackles. Cardiovascular: S1 and S2 are normal. No murmur, rub, or gallop. Abdomen is scaphoid, soft, nontender. No lower extremity edema. He does have slightly inflamed folliculitis on the right forearm which is currently dressed. LABS: At the time of admission and discharge, his hemoglobin is 12.1, platelets 220,000. His sodium on presentation was 162 which improved to 143 at the time of discharge. His chloride on presentation was 125 which improved to 108 at the time of discharge. His BUN on presentation was 44 which improved to 14, and his creatinine was 1.2 which improved to 0.7 at the time of discharge, considering that he probably had acute kidney injury. His urinalysis had E. coli which was sensitive to levofloxacin. Blood culture did not have any growth. Influenza screen was negative. SIGNIFICANT IMAGING DURING HOSPITAL ADMISSION: Chest x-ray on admission had possible peritoneal free air. Abdomen and pelvis CT was indicated. However, abdomen and pelvis CT performed on June 07 had constipation, bibasilar vaguely nodular airspace infiltrate on the right, which were improved on the left without any obstructive bowel pattern. There was no free abdominal gas or fluid. Chest x-ray on June 11 had a hiatal hernia. Electrocardiogram on admission had sinus tachycardia and ST-T wave abnormality, consider inferior ischemia. HOSPITAL COURSE SUMMARY: Mr. Will is a 63-year-old, man who presented on 06/07/2019 with chief complaints of decreased oral intake, decrease in the urine output, decrease in the blood pressure in the emergency room. However, he was found to have sodium of 165 with transaminitis so the hospitalist team was consulted for further management. He was admitted and was started on D5 water with serial blood pressure as well as electrolyte checks. With intravenous fluid resuscitation, his electrolytes and kidney function improved. At the time of discharge, his sodium and kidney function were in acceptable range. He was also found to have a urine infection for which he will be discharged on antibiotics. He had a small folliculitis affecting right forearm for which topical dressing with Betadine was recommended. At the time of discharge, he was afebrile and he was normotensive, so he was deemed appropriate for discharge. Plan of care was discussed with caregiver at bedside. More than 30 minutes were spent discharging this patient. cc: Adrian Trotter MD
== END 2019-06-14 15:24 | disposition home or self-care (01) | DRG 640 ==
LOC: SUPCPDRO → ED 08:48 → SUATTDRO 12:21 → EDIPHOLD 12:21 → 2N 18:09 → 3N 06-09 14:20
PROVIDERS: ATTEND Internal Medicine